=== PATIENT | female | born 1985 | race Caucasian/White ===

== ENCOUNTER 2025-07-30 17:46 | Emergency (ER) | payer MEDICAID ==
[~2025-07-30] VITALS: Ht 162.6 cm; Wt 88.9 kg
[2025-07-30 18:43] LABS: MEAN PLATELET VOLUME 8.4 FL (7.4-10.4); RED CELL DISTRIBUTION WIDTH 14.1 % (11.5-14.5)
[2025-07-30] MEDS: ketorolac trometh 30MG/ML vial 30 MG/ML VIAL IM ONE (18:50)
[2025-07-30 18:52] LABS: URINE HCG NEGATIVE (NEG)
[2025-07-30 18:53] LABS: LEUKOCYTE ESTERASE ,URINE NEGATIVE (Neg); NITRITES, URINE NEGATIVE (Neg); OCCULT BLOOD,URINE LARGE (Neg)
[2025-07-30 18:56] LABS: UA COLLECTION TYPE CLN CATCH MIDSTREAM
[2025-07-30 18:57] LABS: CREATININE 0.88 MG/DL (0.40-0.90); TOTAL CARBON DIOXIDE 25.0 MMOL/L (24-32); eCRCL 74 ML/MIN; eGFR 72 ML/MIN
[2025-07-30 18:59] LABS: SQUAMOUS EPITHELIAL CELL,UR FEW /LPF (FEW)
--- NOTE | 2025-07-30 19:29 | RADIOLOGY REPORT ---
Exam: CT CT ABDOMEN PELVIS History: kidney stone Comparison Study: None Technique: Multidetector spiral CT of the abdomen was performed from lung bases to pubic symphysis. Imaging was performed without IV contrast. Axial, coronal and sagittal multiplanar reformats were obtained from the axial data set by the technologist. Radiation Dose : 1. Abdomen/Pelvis: CTDIvol 25 mGy, DLP 1158 mGy*cm. Findings: Evaluation of solid organs is limited due to lack of intravenous contrast use. Lung Bases: No acute or significant lung base finding. Normal heart size. No pleural or pericardial effusion. Liver: The liver is normal in size. No focal lesions. Gallbladder and Biliary Tree: Unremarkable Spleen: Unremarkable Pancreas: The pancreas is grossly normal in appearance. Adrenal Glands: Unremarkable Kidneys: Probable mild left hydronephrosis secondary to 2 mm obstructing stone in the proximal ureter. Left-sided perinephric stranding suggestive of pyelonephritis. Additional subcentimeter nonobstructing calculi are scattered throughout both kidneys. Bladder: Grossly unremarkable for degree of distention. Bowel: The stomach is grossly normal in appearance. Small bowel and colon are normal in caliber and distribution. The appendix is not visualized; however, no secondary findings of acute appendicitis identified. Ascites: Absent Lymphadenopathy: No mesenteric, retroperitoneal or periportal lymphadenopathy. Abdominal Wall and Mesentery: Unremarkable. Vasculature: The visualized abdominal aorta is normal in size and caliber. Evaluation of abdominal and pelvic vessels is limited due to lack of intravenous contrast. Pelvic Organs: Unremarkable Musculoskeletal: No aggressive focal bony lesions, acute fractures or dislocation. IMPRESSION: 1. Probable mild left hydronephrosis secondary to 2 mm obstructing stone in the proximal ureter. 2. Left-sided perinephric stranding suggestive of pyelonephritis. 3. Additional subcentimeter nonobstructing calculi are scattered throughout both kidneys. Radiation optimization: All CT scans at this facility use at least one of these dose optimization techniques: automated exposure control mA and/or kV adjustment per patient size (includes targeted exams where dose is matched to clinical indication) or iterative reconstruction.
[2025-07-30] MEDS ORDERED: sulfamethoxazole/trimethoprim DS (800/160mg) tablet PO ONE (20:25)
[2025-07-30] MEDS ORDERED: SULF1TAB45 PO (20:35)
[2025-07-30] MEDS ORDERED: TAMS-55 PO (20:35)
--- NOTE | 2025-07-30 20:38 | Physician Documentation ---
History of Present Illness Chief Complaint: Flank Pain Stated Complaint: FLANK PAIN Time Seen by MD: 18:30 HPI 39-year-old female presents to the ED with a complaint of right flank pain that was acute onset at 11:00 a.m. today. He has difficulty getting in to any comfortable position reports the pain is nine and sharp in nature. Denies any urinary symptoms frequency or burning. She has never had a kidney stone before. He also adds that she is generally hydrated. Day of Onset: Jul 30, 2025 Medication Reconciliation Allergies: Coded Allergies: latex (Verified Allergy, Unknown, 07/30/25) Review of Systems All Other Systems at this time: Reviewed and Negative ROS As stated above in the HPI, otherwise all systems are reviewed and negative. Physical Exam Vital Signs: Temperature: 97.9, Source: Temporal, Heart Rate: 100, Respiratory Rate: 18, BP: 159/83, Pulse Oximetry: 99, Weight: 88.900 Oxygen Flow Rate: 0 Physical Exam General: Alert, no apparent distress. Respiratory: Lungs clear, no respiratory distress. Cardiovascular: Regular rate and rhythm, no murmurs. Gastrointestinal: Soft, nontender, nondistended. Bowels sounds present. Neurologic: Oriented x4. Psychiatric: Normal mood and affect. Skin: Normal color, warm and dry. No edema, no ecchymosis. Progress Results/Orders Results/Orders Orders - RYAN TOTH TIRE FABRICATOR Ct Abdomen Pelvis (07/30/25 19:00) Completed Orders - RYAN TOTH TIRE FABRICATOR Ct Abdomen Pelvis (07/30/25 19:00) Ketorolac Trometh 30mg/Ml Vial (Toradol (07/30/25 18:45) Sulfamethox/Trimetho. Ds Tab (Septra Ds (07/30/25 20:25) Medications Received in ER Medications (Trade) Dose Ordered Sig/Hadley Route PRN Reason Start Time Stop Time Status Last Admin Dose Admin (Toradol inj. 30mg/ml) 30 mg ONCE ONCE IM 07/30/25 18:45 07/30/25 18:47 DC 07/30/25 18:50 30 MG Vital Signs 07/30/25 17:47 Temp 97.9 Pulse 100 Resp 18 B/P (MAP) 159/83 Pulse Ox 99 O2 Flow Rate 0 Laboratory Tests Test 07/30/25 18:13 07/30/25 18:47 White Blood Count 9.5 Red Blood Count 5.22 Hemoglobin 15.2 Hematocrit 43.5 Mean Corpuscular Volume 83.4 Mean Corpuscular Hemoglobin 29.2 Mean Corpuscular Hemoglobin Concent 35.0 Red Cell Distribution Width 14.1 Platelet Count 328 Mean Platelet Volume 8.4 Neutrophils (%) (Auto) 67.4 Lymphocytes (%) (Auto) 27.1 Monocytes (%) (Auto) 4.2 Eosinophils (%) (Auto) 0.9 Basophils (%) (Auto) 0.4 Neutrophils # (Auto) 6.4 Lymphocytes # (Auto) 2.6 Monocytes # (Auto) 0.4 Eosinophils # (Auto) 0.1 Basophils # (Auto) 0.0 CBC Comment Sodium Level 139 Potassium Level 3.6 Chloride Level 104 Carbon Dioxide Level 25.0 Anion Gap 10 Blood Urea Nitrogen 12 Creatinine 0.88 Estimated GFR/1.73 m2 72 BUN/Creatinine Ratio 13.6 Glucose Level 82 Calcium Level 9.6 Total Bilirubin 0.5 Aspartate Amino Transf (AST/SGOT) 23 Alanine Aminotransferase (ALT/SGPT) 24 Alkaline Phosphatase 84 Total Protein 8.1 Albumin 4.5 Globulin 3.6 Albumin/Globulin Ratio 1.3 Lipase 77 Chemistry Comments Urine Specimen Description Cln catch midstream Urine Color Yellow Urine Clarity Clear Urine pH 6.0 Urine Specific [place] <=1.005 Urine Protein Negative Urine Glucose (UA) Negative Urine Ketones Trace H Urine Occult Blood Large H Urine Nitrite Negative Urine Bilirubin Negative Urine Urobilinogen 0.2 Urine Leukocyte Esterase Negative Urine RBC 0-2 Urine WBC None seen Urine Squamous Epithelial Cells Few Urine Bacteria Few Urine Culture Indicated Not ind Volume Urine Centrifuged 10 ml Urine HCG, Qualitative Negative Urine Comment Medical Decision Making Findings According to CT patient has mild hydro nephrosis along with multiple kidney stones. They also made note of developing pyelonephritis. However urinalysis does not completely correlate with this finding nor does her laboratory values. I am going to start her empirically on sulfa and discharge her with a Flomax Differential Dx:Considerations: Include: AAA, -Complete, - Incomplete, -Inevitable, -Missed, -Threatened, Abruptio placentae, Angina/MD, Aortic dissection, Appendicitis, Bowel obstruction, Cholangitis, Cholelithasis, Constipation, Diverticular disease, Esophageal rupture, Esophagitis, Gastritis/PUD, Gastroenteritis, GI hemorrhage, Hernia, Hepatitis, Inflammatory BD, Ischemic bowel, Ovarian cyst/torsion, Pancreatitis, PID, Porphyria, Trauma, intraabdominal, Urinary obstruction, Urinary tract infection, Urolithiasis, Other Departure Impression: Primary Impression: Calculus of kidney Additional Impression: Acute pyelonephritis Discharge Instructions: Pyelonephritis, Adult, Kidney Stones Referrals: NO PRIMARY CARE PROVIDER (PCP) Prescriptions Tamsulosin Hcl* (Flomax*) 0.4 Mg Cap.sr.24h 1 CAP PO DAILY for 30 Days, #30 CAP Prov: RYAN TOTH NP 07/30/25 Sulfamethoxazole/Trimethoprim (Septra Ds Tab) 800 Mg/160 Mg Tablet 1 TAB PO Q12H for 10 Days, #20 TAB Prov: RYAN TOTH NP 07/30/25 Education Educated: Patient Educated regarding: diagnosis Signature Scribe Signature: g Attestation: Scribed for Ryan Toth Vending Machine Mechanic by Ryan Toth - BUTCH . 07/30/25 20:36 RYAN TOTH TIRE FABRICATOR Jul 30, 2025 20:38
[2025-07-30 20:52] VITALS: BP 148/78; PULSE 82; RESP 18; TEMP 98.6; O2SAT 99
== END 2025-07-30 20:53 | disposition home or self-care (01) ==
LOC: ER 17:47
DX: N20.0 Calculus of kidney (principal); N10 Acute pyelonephritis; Z91.040 Latex allergy status
CPT/HCPCS: 36415; 74176; 80053; 81001; 81025; 83690; 85025; 96372; 99285; J1885

== ENCOUNTER 2025-08-07 12:48 | Emergency (ER) | payer MEDICAID ==
[~2025-08-07] VITALS: Ht 162.6 cm; Wt 85.1 kg
[~2025-08-07 12:48] MED LIST: SULF1TAB45 PO; TAMS-55 PO
[2025-08-07 12:53] VITALS: TEMP 97.8
--- NOTE | 2025-08-07 18:09 | Physician Documentation ---
History of Present Illness ~ Chief Complaint: Groin Pain Stated Complaint: KIDNEY STONES Time Seen by MD: 18:06 HPI Patient presents to the emergency room with left lower quadrant abdominal pain. Pain is intermittent comes in waves. She is diagnosed with a 2 mm kidney stone a proximally 1-2 weeks ago. She states the pain that has different today it is more intense. Has been having problems defecating recently and she attributes this to Zepbound. Medication Reconciliation Allergies: Coded Allergies: latex (Verified Allergy, Unknown, 08/07/25) Scheduled Sulfamethoxazole/Trimethoprim (Septra Ds Tab), 1 TAB PO Q12H Tamsulosin Hcl* (Flomax*), 1 CAP PO DAILY Review of Systems ROS All review of systems negative except as per HPI Physical Exam Vital Signs: Temperature: 97.8, Source: Temporal, Heart Rate: 91, Respiratory Rate: 18, BP: 144/83, Pulse Oximetry: 98, Weight: 85.100 Physical Exam General: Patient is awake, alert, oriented x4 in no acute distress Head: Normocephalic and atraumatic. Eyes: Conjunctival normal. EOMI. PERRL. ENT: Mucous membranes moist. Neck: Supple, trachea is midline. Chest: Clear to auscultation bilaterally without rales, rhonchi, or wheezes. There is no accessory muscle use or retractions. Cardiac: RRR without murmurs, gallops, or rubs. Abd: Soft, nondistended, right lower quadrant tenderness to palpation without peritonitis Progress Results/Orders Results/Orders Orders - SEKOU GONZALEZ MD Ultrasound Kidney Non Vasc (08/07/25 18:13) Completed Orders - SEKOU GONZALEZ MD Cbc/Diff (08/07/25 18:13) Lipase (08/07/25 18:13) Urinalysis, Cult If Indicated (08/07/25 18:13) Hcg, Ur Ql (08/07/25 18:13) BMP (08/07/25 18:13) Ibuprofen Tablet (Motrin Tablet) (08/07/25 18:15) Ultrasound Kidney Non Vasc (08/07/25 18:13) Medications Received in ER Medications (Trade) Dose Ordered Sig/Hadley Route PRN Reason Start Time Stop Time Status Last Admin Dose Admin (Motrin tablet) 800 mg ONCE ONCE PO 08/07/25 18:15 08/07/25 18:16 DC 08/07/25 18:56 800 MG Vital Signs 08/07/25 08/07/25 08/07/25 12:53 18:09 18:29 Temp 97.8 Pulse 91 91 Resp 18 14 B/P (MAP) 144/83 104/61 (75) Pulse Ox 98 97 Laboratory Tests Test 08/07/25 18:25 08/07/25 19:05 White Blood Count 10.5 Red Blood Count 5.19 Hemoglobin 14.9 Hematocrit 43.5 Mean Corpuscular Volume 83.9 Mean Corpuscular Hemoglobin 28.6 Mean Corpuscular Hemoglobin Concent 34.1 Red Cell Distribution Width 13.8 Platelet Count 367 Mean Platelet Volume 8.6 Neutrophils (%) (Auto) 79.5 H Lymphocytes (%) (Auto) 16.4 L Monocytes (%) (Auto) 3.4 Eosinophils (%) (Auto) 0.2 Basophils (%) (Auto) 0.5 Neutrophils # (Auto) 8.4 H Lymphocytes # (Auto) 1.7 Monocytes # (Auto) 0.4 Eosinophils # (Auto) 0.0 Basophils # (Auto) 0.0 CBC Comment Sodium Level 137 Potassium Level 4.1 Chloride Level 102 Carbon Dioxide Level 25.0 Anion Gap 10 Blood Urea Nitrogen 11 Creatinine 0.78 Estimated GFR/1.73 m2 82 BUN/Creatinine Ratio 14.1 Glucose Level 80 Calcium Level 9.2 Albumin 4.5 Lipase 60 Chemistry Comments Urine Specimen Description Cln catch midstream Urine Color Yellow Urine Clarity Clear Urine pH 6.0 Urine Specific [place] >=1.030 Urine Protein Negative Urine Glucose (UA) Negative Urine Ketones >=80 Urine Occult Blood Negative Urine Nitrite Negative Urine Bilirubin Negative Urine Urobilinogen 0.2 Urine Leukocyte Esterase Negative Urine Culture Indicated Not ind Volume Urine Centrifuged 10 ml Urine HCG, Qualitative Negative Urine Comment Medical Decision Making Additional info obtained from: old records Findings Patient presents to the emergency room with left-sided abdominal pain. Differentials include but are not limited to kidney stone urinary tract infection ovarian pathology diverticulitis constipation therefore emergent labs ordered which were reassuring. Symptoms are intermittent and that has no adnexal tenderness and he had not feel patient is suffering from ovarian pathology. Patient reports that she has history of ovarian cysts and this does not feel like it. Given patient's recent history of bowel changes I suspect she may be suffering from constipation she has been instructed to increase her constipation medications at home into monitor for worsening of symptoms or fevers. Urinary Diff Dx:Considerations: Include: AAA, , Aortic dissection, Appendicitis, Bowel obstruction, Cholelithiasis, Choleangitis, DJD, Ectopic , Hepatitis, HNP, Impaction, Intrauterine , Musculoskeletal pain, Ovarian torsion, Pancreatitis, PID, Post-Op complication, Pyelonephritis, Renal failure, Strain, Urinary Obstruction, Urolithiasis, Urinary retention, UTI, Vaginitis, Other Genital Diff Dx:Considerations: Include: -Complete, - Incomplete, -Inevitable, Ablortion-Missed, -Threatened, Abruptio placentae, Bartholin abscess, Bartholin cyst, Blood loss anemia, Constipation, Cervicitis, Dsymenorrhea, Ectopic , Foreign body, Hormonal, Hidradenitis suppurativa, Intrauterine , Menorrhagia, Menometrorrhagia, Menstrual bleeding, Myomatous uterus, Perianal abscess, Physiologic discharge, Pinworms, PID, Placenta previa, , Precipitous Hct, Trauma, UTI, Vagi nitis(osis)-Atrophic, Vaginitis, Vaginitis(osis)-Bacterial, Vaginitis(osis)- Candidal, Vaginitis(osis)-Contact, Vaginitis(osis)-Herpes, Vaginitis(osis)- Trich., Other Departure Disposition: 01 HOME / SELF CARE / HOMELESS Impression: Primary Impression: Abdominal pain Condition: Stable Discharge Instructions: Abdominal Pain, Adult Additional Instructions: Double your hydration efforts and increase constipation signs. Return for worsening of symptoms or fevers Referrals: NO PRIMARY CARE PROVIDER (PCP) Signature Scribe Signature: No scribe Attestation: The note accurately reflects work and decisions made by me.Sekou Gonzalez MD 08/07/25 19:48 SEKOU GONZALEZ MD Aug 07, 2025 18:09
[2025-08-07 18:39] LABS: MEAN PLATELET VOLUME 8.6 FL (7.4-10.4); RED CELL DISTRIBUTION WIDTH 13.8 % (11.5-14.5)
[2025-08-07 18:53] LABS: CREATININE 0.78 MG/DL (0.40-0.90); TOTAL CARBON DIOXIDE 25.0 MMOL/L (24-32); eCRCL 84 ML/MIN; eGFR 82 ML/MIN
[2025-08-07] MEDS: ibuprofen tablet 400 MG TABLET PO ONE (18:56)
--- NOTE | 2025-08-07 19:00 | RADIOLOGY REPORT ---
RENAL ULTRASOUND REASON FOR EXAM: left sided abd pain COMPARISON: CT CT ABDOMEN PELVIS on DOS: 07/30/25 TECHNIQUE: Real-time sector scans in multiple planes were obtained over the kidneys, ureters and bladder. FINDINGS: The right kidney measures 9.2 x 4.5 x 5.3 cm. The left kidney measures 10.2 x 4.8 x 5.0 cm. No mass is identified. There is no hydronephrosis. The urinary bladder is within normal limits. Both the right and left ureteral jets were identified during this study. At the time of scanning, the urinary bladder measured 213 cc. IMPRESSION: Normal sonographic appearance of the kidneys and bladder.
[2025-08-07 19:31] LABS: URINE HCG NEGATIVE (NEG)
[2025-08-07 19:32] LABS: LEUKOCYTE ESTERASE ,URINE NEGATIVE (Neg); NITRITES, URINE NEGATIVE (Neg); OCCULT BLOOD,URINE NEGATIVE (Neg)
[2025-08-07 19:35] LABS: UA COLLECTION TYPE CLN CATCH MIDSTREAM
[2025-08-07 20:15] VITALS: BP 108/70; PULSE 89; RESP 14; O2SAT 98
== END 2025-08-07 20:17 | disposition home or self-care (01) ==
LOC: ER 12:49
DX: R10.32 Left lower quadrant pain (principal); Z87.442 Personal history of urinary calculi; Z91.040 Latex allergy status; Z79.899 Other long term (current) drug therapy
CPT/HCPCS: 36415; 76770; 80048; 81003; 81025; 83690; 85025; 99284

== ENCOUNTER 2025-08-10 09:02 | Emergency (ER) | payer MEDICAID ==
[~2025-08-10] VITALS: Ht 162.6 cm; Wt 83.2 kg
[2025-08-10 09:08] VITALS: TEMP 97.7
--- NOTE | 2025-08-10 09:14 | Physician Documentation ---
History of Present Illness Stated Complaint: LOWER ABD PAIN HPI Female returns to the ED for ongoing left lower quadrant abdominal and pelvic pain. A few days ago she was evaluated in the ED had an ultrasound which showed no evidence of ovarian cysts. Patient does take a GLP 1 drug for weight loss. Primary care today and was sent to the ER for concerns of diverticulitis. Patient does not have any fevers but had vomited two days ago she had a bowel m ovement yesterday and it was hard. It was instructed that her previous visits to increase her intake of stool softeners but she has not had complete alleviation of her symptoms Day of Onset: Aug 10, 2025 Medication Reconciliation Allergies: Coded Allergies: latex (Verified Allergy, Unknown, 08/10/25) Scheduled Polyethylene Glycol 3350* (Miralax*), 1 PKT PO DAILY Tamsulosin Hcl* (Flomax*), 1 CAP PO DAILY Scheduled PRN ONDANSETRON ODT 4mg tablet (Ondansetron Odt), 1 TAB PO Q6H PRN PRN for nausea/vomiting Discontinued Medications Sulfamethoxazole/Trimethoprim (Septra Ds Tab), 1 TAB PO Q12H Discontinued Reason: Auto Discontinued Review of Systems All Other Systems at this time: Reviewed and Negative ROS As stated above in the HPI, otherwise all systems are reviewed and negative. Physical Exam Physical Exam General: Alert, no apparent distress. Respiratory: Lungs clear, no respiratory distress. Gastrointestinal: Soft, nontender tender left lower quadrant Neurologic: Oriented x4. Psychiatric: Normal mood and affect. Skin: Normal color, warm and dry. No edema, no ecchymosis. Medical Decision Making Additional information obtaine: N/A Findings This patient is return to the ED with ongoing abdominal pain symptoms which have not resolved. For CT which indicated constipation. This is not a surprise secondary to the GLP 1 drug that she was prescribed going to give her Mag citrate while in the ED and advise her to titrate the MiraLax at home to maintain adequate bowel movements. In his send her home with Zofran secondary to the side effect of nausea from the GLP 1- No evidence of bowel obstruction Differential Dx:Considerations: Appendicitis, Constipation, Hernia, Ischemic bowel Departure Disposition: HOME / SELF CARE / HOMELESS Impression: Primary Impression: Constipation Condition: Improved Discharge Instructions: Constipation, Adult, [id number] Additional Instructions: Suspected you have [id number] constipation secondary to taking a GLP 1 drug. Prescribed from used Zofran in a want you to take the Mag citrate while in the ED. Going forward I want she did titrate MiraLax on a daily basis until you find a dose that produces a soft bowel movement. Then continue this dose on a daily regimen to maintain adequate bowel movements Referrals: NO PRIMARY CARE PROVIDER (PCP) Prescriptions Polyethylene Glycol 3350* (Miralax*) 1 Packet Packet 1 PKT PO DAILY for constipation, #30 PKT dissolve in water Prov: RYAN TOTH NP 08/10/25 ONDANSETRON ODT 4mg tablet (ONDANSETRON ODT) 4 Mg Tab.rapdis 1 TAB PO Q6H PRN PRN for nausea/vomiting for 4 Days, #16 TAB 0 Refills Prov: RYAN TOTH NP 08/10/25 Signature Scribe Signature: h Attestation: Scribed for Emergency,Department by Ryan Michel NP . 08/10/25 09:13 RYAN TOTH NP Aug 10, 2025 09:14
[2025-08-10 09:33] LABS: MEAN PLATELET VOLUME 8.3 FL (7.4-10.4); RED CELL DISTRIBUTION WIDTH 13.9 % (11.5-14.5)
[2025-08-10 09:45] LABS: CREATININE 0.75 MG/DL (0.40-0.90); TOTAL CARBON DIOXIDE 24.9 MMOL/L (24-32); eCRCL 87 ML/MIN; eGFR 86 ML/MIN
--- NOTE | 2025-08-10 09:56 | RADIOLOGY REPORT ---
CLINICAL HISTORY: constiation TECHNIQUE: CT of the abdomen and pelvis was performed without IV contrast. This exam was performed according to our departmental dose optimization program. Up-to-date CT equipment and radiation dose reduction techniques are utilized as appropriate. CTDI 24.3 DLP 1143 COMPARISON: CT CT ABDOMEN PELVIS on DOS: 07/30/25 FINDINGS: Abdomen/Pelvis: The spleen, pancreas, adrenal glands, gallbladder, liver, and uterus are grossly unremarkable. There are numerous bilateral nonobstructing right renal calculi, measuring up to 5 mm. There is a punctate nonobstructing left renal calculus. The abdominal aorta is normal in course and caliber. There are no significant atherosclerotic calcifications. There is no free intraperitoneal air. There is trace nonspecific free fluid in the deep pelvis. There is no enlarged abdominal pelvic lymph node. There is no bowel wall thickening or dilatation. The appendix is normal. There is a moderate amount of stool in the colon. Other: The imaged lower thorax is unremarkable. No acute osseous abnormality is evident. Impression: No acute noncontrast CT abnormality in the abdomen or pelvis. Bilateral nonobstructing renal calculi. Constipation.
[2025-08-10] MEDS ORDERED: ONDA-243 PO (10:09)
[2025-08-10] MEDS ORDERED: POLY17PO10 PO (10:09)
[2025-08-10 10:20] VITALS: BP 105/71; PULSE 90; RESP 20; O2SAT 98
[2025-08-10] MEDS: magnesium citrate 296ml oral solution PO ONE (10:33)
== END 2025-08-10 10:38 | disposition home or self-care (01) ==
LOC: ER 09:02
DX: K59.00 Constipation, unspecified (principal); Z91.040 Latex allergy status
CPT/HCPCS: 36415; 74176; 80048; 85025; 99284